=== PATIENT | male | born 1965 | race Caucasian/White ===

== ENCOUNTER → 2018-11-15 | Outpatient (CLI) | payer OTHER ==
--- NOTE | 2018-11-15 09:21 | RAD ---
EXAM DESCRIPTION: Elbow,Left 3 Views CLINICAL HISTORY: M25.522 COMPARISON: None Available. TECHNIQUE: AP, Lateral, and Oblique FINDINGS: Three-view left elbow shows no fracture or dislocation. No displacement of the distal humeral fat pads. Radial head and capitellum are normally aligned on both views. There is no bone lesion. Mild spurring at the coronoid process and olecranon. There is no radiopaque foreign body. IMPRESSION: Mild degenerative changes as described. Electronically signed by: Lio Richardson MD 11/15/2018 9:19 AM CDT
== END ==
LOC: RAD 09:05
PROVIDERS: ATTEND Orthopaedic Surgery
DX: M19.022 Primary osteoarthritis, left elbow (principal)

== ENCOUNTER → 2018-11-22 | Outpatient (CLI) | payer OTHER ==
--- NOTE | 2018-11-22 15:34 | MRI ---
MRI left elbow without contrast INDICATION: Elbow pain tricep tendon injury/rupture TECHNIQUE: Noncontrast MR imaging left elbow FINDINGS: Distal bicep tendinopathy without rupture or retraction. Distal brachialis is intact. Cubital tunnel is unremarkable. There is interstitial tendinosis of the distal tricep with interstitial fissuring/low-grade partial tear. No rupture or retraction. Small elbow effusion. Minimal thickening the olecranon bursa. No disruption of the collateral ligaments. Common flexor and common extensor are intact. No fracture dislocation or destructive lesion IMPRESSION: Interstitial tendinosis and mild fissuring distal tricep tendon. No rupture or retraction Minimal olecranon bursal thickening Otherwise negative Electronically signed by: Ulices Kruger MD 11/22/2018 3:32 PM CDT
== END ==
LOC: MRI 14:00
PROVIDERS: ATTEND Orthopaedic Surgery
DX: M66.822 Spontaneous rupture of other tendons, left upper arm (principal); M75.52 Bursitis of left shoulder